=== PATIENT | female | born 1960 | race Caucasian/White ===

== ENCOUNTER 2016-08-15 09:59 | Emergency (ER) | payer OTHER ==
--- NOTE | ~2016-08-15 | ER ---
PATIENT'S NAME: DANNY CROWE [facility] AGE: 55 Y [address] ROOM: [place] [address] LOCATION: [facility] ADMIT DATE: 08/15/2016 ER/Outpatient Report DISCHARGE DATE: 08/15/2016 FAMILY PHYSICIAN: Ladonna Recinos ATTENDING PHYSICIAN: Johann Solomon Time of Arrival: 0959 hours. Time of evaluation: 1001 hours. CHIEF COMPLAINT: Allergic reaction. HISTORY OF PRESENT ILLNESS: The patient is a 55-year-old female, who presents to the emergency department today with the chief complaint of allergic reaction. She reports that she drank some Kombucha tea at approximately 8 o'clock this morning. She reports that she has not drink this type of tea before. This is the first time she has ever done that. She reports she has been allergic to these types of things and substances and foods in the past. The patient did take 2 Benadryl. She does report that she is feeling slightly short of breath with some slight swelling as well in her throat. She denies any fevers or chills. Does have some nausea. No vomiting. No diarrhea or constipation. PAST MEDICAL HISTORY: None. PAST SURGICAL HISTORY: None reported. SOCIAL HISTORY: The patient denies any tobacco use. Reports rare alcohol use. Denies any illicit drug use. ALLERGIES: CODEINE. MEDICATIONS: None reported. PRIMARY CARE DOCTOR: DIANA Mccallum REVIEW OF SYSTEMS: All systems are reviewed by myself are negative with the exception of those discussed in the HPI and past medical history. PATIENT'S NAME: DANNY CROWE [facility] AGE: 55 Y [address] ROOM: [place] [address] LOCATION: [facility] ADMIT DATE: 08/15/2016 ER/Outpatient Report DISCHARGE DATE: 08/15/2016 FAMILY PHYSICIAN: Ladonna Recinos ATTENDING PHYSICIAN: Johann Solomon PHYSICAL EXAMINATION: VITAL SIGNS: Weight 76.5 kg. Blood pressure 151/67, pulse 100, oxygen saturation 99% on room air, and temperature 98.4. GENERAL: The patient is a 55-year-old female, who appears stated age, in mild discomfort secondary to respiratory distress. HEENT: Normocephalic and atraumatic. Pupils are equal, round, and reactive to light and accommodating. Oropharynx is clear. NECK: Supple. There is no nuchal rigidity. CARDIOVASCULAR: Tachycardic. No murmurs, rubs, or gallops. LUNGS: Clear to auscultation bilaterally. No wheezes, rales, or rhonchi. ABDOMEN: Soft, nontender, and nondistended. No rebound, rigidity, or guarding. MUSCULOSKELETAL: The patient moves all 4 extremities. SKIN: Warm and dry. There are no rashes or lesions noted. LABORATORY DATA AND X-RAYS: None. IMPRESSION: 1. Acute allergic reaction. 2. Initial visit. EMERGENCY DEPARTMENT COURSE: The patient was brought back to the examination room. Seen and evaluated by myself. IV was established. The patient was given 20 mg of Pepcid IV, 125 mg of Solu-Medrol IV, as well as 25 mg of Benadryl IV. The patient is observed here in the emergency department. Her symptoms have resolved at this time. I have evaluated the patient. Once again, vital signs have remained stable. She is ambulating to the bathroom unassisted. She does not have any respiratory distress. I do feel she is safe for outpatient evaluation. I have recommended Benadryl as needed [id number] and avoiding tea. I have discussed return to care instructions including worsening symptoms or any other concerns to return to the emergency department as soon as possible. The patient is agreeable without further questions. DISPOSITION: The patient is discharged to home in good condition. DO SHAHNAZ AGUIRRE/abdoul PATIENT'S NAME: DANNY CROWE [facility] AGE: 55 Y [address] ROOM: [place], [place] [address] LOCATION: [facility] ADMIT DATE: 08/15/2016 ER/Outpatient Report DISCHARGE DATE: 08/15/2016 FAMILY PHYSICIAN: Ladonna Recinos ATTENDING PHYSICIAN: Johann Solomon /[id number] d: 08/15/16 1736 t: 08/24/16 0651, OUTPATIENT REPORT
== END 2016-08-15 11:20 | disposition disaster alternative care site (69) ==
LOC: GMED 09:59
DX: T78.40XA Allergy, unspecified, initial encounter (principal); Z88.5 Allergy status to narcotic agent; Y99.8 Other external cause status
CPT/HCPCS: J1200; J2930